=== PATIENT | male | born 1975 | race African-American/Black ===

== ENCOUNTER 2019-11-29 15:07 | Emergency (ER) | payer OTHER | END 2019-11-29 17:44 | disposition left against medical advice (07) | LOC: EMS 15:10 | DX: R51 Headache (principal); Z53.21 Procedure and treatment not carried out due to patient leaving prior to being seen by health care provider ==

== ENCOUNTER 2023-05-13 22:52 | Emergency (ER) | payer OTHER ==
[~2023-05-13] VITALS: Ht 177.8 cm; Wt 94.5 kg
[2023-05-13 22:58] VITALS: BP 143/96; PULSE 92; RESP 18; TEMP 98.3
[2023-05-13] MEDS ORDERED: IBUP-2077 PO (23:09)
[2023-05-13] MEDS ORDERED: METO25 PO (23:09)
[2023-05-13] MEDS ORDERED: AMLO5TAB66 PO (23:09)
[2023-05-13] MEDS ORDERED: FAMO20TA8 PO (23:09)
[2023-05-14] MEDS ORDERED: IBUPROFEN 800 MG TABLET PO ONE (01:45)
[2023-05-14] MEDS ORDERED: IBUP-1492 PO (01:48)
== END 2023-05-14 02:05 | disposition home or self-care (01) ==
LOC: EMS 22:53
DX: S93.601A Unspecified sprain of right foot, initial encounter (principal); E11.9 Type 2 diabetes mellitus without complications; I10 Essential (primary) hypertension; F17.210 Nicotine dependence, cigarettes, uncomplicated; F12.90 Cannabis use, unspecified, uncomplicated; Z98.890 Other specified postprocedural states; V89.2XXA Person injured in unspecified motor-vehicle accident, traffic, initial encounter; Y93.89 Activity, other specified; Y92.89 Other specified places as the place of occurrence of the external cause; Y99.8 Other external cause status
CPT/HCPCS: 99283